=== PATIENT | male | born 1955 | race Caucasian/White ===

== ENCOUNTER 2020-08-10 06:58 | Inpatient (IN) | payer MEDICAID ==
[2020-08-03 14:42] LABS: BASOPHILS % (AUTO) 0.3 % (0-1); EOSINOPHILS % (AUTO) 0.6 % (0-6); LYMPHOCYTES # (AUTO) 1.1 X10'3 (1.1-4.8); LYMPHOCYTES % (AUTO) 14.3 % (21-51); MEAN CORPUSCULAR HEMOGLOBIN 34.6 PG (27.0-31.0); MEAN CORPUSCULAR HGB CONC 33.9 g/dL (33.0-36.5); MEAN PLATELET VOLUME 8.1 FL (7.4-10.4); MONOCYTES # (AUTO) 0.6 X10'3 (0-0.9); MONOCYTES % (AUTO) 7.5 % (2-12); NEUTROPHILS % (AUTO) 77.3 % (42-75); PRE OP HEMATOCRIT 39.2 % (42.0-52.0); PRE OP HEMOGLOBIN 13.3 g/dL (14.0-17.9); PRE OP PLATELET COUNT 160 X10'3 (140-440); RED BLOOD COUNT 3.85 X10'6 (4.70-6.10); RED CELL DISTRIBUTION WIDTH 15.7 % (11.5-14.5)
[2020-08-03 14:55] LABS: PRE OP PROTIME 10.7 SECONDS (9.0-12.0)
[2020-08-03 15:03] LABS: ALBUMIN 3.7 G/DL (3.4-5.0); ALBUMIN/GLOBULIN RATIO 1.1 (1.1-1.5); ALKALINE PHOSPHATASE 116 IU/L (46-116); BLOOD UREA NITROGEN 14 MG/DL (7-18); BUN/CREATININE RATIO 14.6 (5.4-32.0); CALCIUM 9.2 MG/DL (8.5-10.1); CHLORIDE 107 MMOL/L (99-107); CREATININE 0.96 MG/DL (0.60-1.10); PRE OP ALT 22 U/L (30-65); PRE OP ANION GAP 6 (8-16); PRE OP AST 15 U/L (10-37); PRE OP BILIRUB, TOTAL 0.3 MG/DL (0.0-1.0); PRE OP GLUCOSE 93 MG/DL (70-104); PRE OP POTASSIUM 4.2 MMOL/L (3.4-5.1); PRE OP SODIUM 140 MMOL/L (135-145); TOTAL CARBON DIOXIDE 27.1 MMOL/L (24-32); TOTAL PROTEIN 7.1 G/DL (6.4-8.2); eGFR 79 ML/MIN
[2020-08-10] VITALS (23 sets, daily range): BP systolic 92–139; BP diastolic 52–88
[~2020-08-10] VITALS: Ht 188 cm; Wt 90.7 kg
[~2020-08-10 06:58] MED LIST: NO HOME MEDS; ceFAZolin 2gm in dextrose, iso 50 ML IV ONE; famotidine 20mg tablet PO ONE; ringers solution, lacted 1,000 ML IV SCH
[2020-08-10] MEDS ORDERED: BUPIVAcaine/PF 2.5mg/ml (0.25%) 10ml vial ONE (08:21)
[2020-08-10] MEDS ORDERED: BUPIVAcaine/PF 2.5 mg/ml (0.25%) 30ml vial ONE (08:21)
[2020-08-10] MEDS ORDERED: BUPIVACAINE liposomal/PF 13.3 MG/ML vial IM ONE ×2 (08:22→11:22)
[2020-08-10] MEDS ORDERED: fentaNYL /PF 50mcg/ml 5ml ampule ONE (08:45)
[2020-08-10] MEDS ORDERED: midazolam 2 mg/2 ml injection ONE ×2 (08:45→10:02)
[2020-08-10] MEDS ORDERED: sevoflurane 250ml liquid IH ONE (09:56)
[2020-08-10] MEDS ORDERED: propofol inj 20 ML IV ONE (10:00)
[2020-08-10] MEDS ORDERED: rocuronium 10mg/ml inj IV ONE ×3 (10:00→14:07)
[2020-08-10] MEDS ORDERED: ePHEDrine 50MG/ML INJ. ONE (11:58)
[2020-08-10] MEDS ORDERED: meperidine/PF 25mg/ml syringe IV PRN ×2 (12:15)
[2020-08-10] MEDS ORDERED: morphine 2 MG/ML inj. syringe IV PRN (12:15)
[2020-08-10] MEDS ORDERED: proCHLORperazine 10 MG/2 ml inj IV PRN (12:15)
[2020-08-10] MEDS ORDERED: ondansetron/PF 4mg/2ml inj IV PRN ×2 (12:15→15:50)
[2020-08-10] MEDS ORDERED: ringers solution, lacted 1,000 ML IV SCH (12:15)
[2020-08-10] MEDS ORDERED: morphine 4 MG/ML inj SYRINge IV PRN ×3 (12:15→15:50)
[2020-08-10] MEDS ORDERED: ceFAZolin 1000mg inj ONE ×2 (13:20→14:07)
[2020-08-10] MEDS ORDERED: glycopyrrolate 0.2mg/ml inj ONE (15:23)
[2020-08-10] MEDS ORDERED: neostigmine methylsulfate 1 MG/ML 10ml vial ONE (15:23)
[2020-08-10] MEDS ORDERED: fentaNYL/PF 50MCG/1 ML 2ML syringe ONE (15:41)
--- NOTE | 2020-08-10 15:47 | NUR ---
Received from OR via BED, accompanied by Anesthesiologist DR BEJARANO and report given by Anesthesiologist. PT ANXIOUS, PAINFUL, PT NOT ANSWERING QUESTIONS, PAIN MEDICATION GIVEN BY DR BEJARANO. RIGHT CHEST W/MEDIPORE TAPE COVERING CT X 1 CDI, NO DRAINAGE IN RIGHT CT, ATTACHED TO SUCTION 20MMHG LCS, NO AIR LEAK NOTED. LEFT CHEST W/INCISION TO MID CHEST W/TAPE COVERING, NO DRIANAGE NOTED. CT X 2 TO SUCTION 20MMHG LCS W/110 ML S/S DRAINAGE IN [facility]. DEAL CATHETER TO GRAVITY DRAINAGE W/YELLOW URINE IN DRAINAGE BAG, COLOSTOMY BAG REMAINS INTACT. Addendum: 08/10/20 at 1630 by Darcy Amaya RN Amended: Links added.
[2020-08-10] MEDS ORDERED: naloxone 0.4 mg/ml inj IV PRN (15:50)
[2020-08-10] MEDS ORDERED: albuterol 2.5 MG/3 ML nebule NEB PRN (15:50)
[2020-08-10] MEDS ORDERED: CADD PCA waste documentation MC PRN (15:50)
[2020-08-10] MEDS ORDERED: metoclopramide 5 mg/ml inj IV PRN (15:50)
[2020-08-10] MEDS ORDERED: sugammadex 200mg/2ml injection IV ONE (15:53)
[2020-08-10] MEDS: meperidine/PF 25mg/ml syringe IV PRN ×4 (16:13→17:42)
[2020-08-10 16:22] LABS: ABG HCO3 20.3 mmol/L (22.0-26.0); ABG OXYGEN SATURATION 91.5 % (94-97); ABG PCO2 (T) 46.1 mmHg (35.0-48.0); FCOHb 0.2 % (0.0-3.9); FLOW 10 L/min; FMetHb 0.3 % (0.0-1.5); PATIENT TEMPERATURE 36.3; TOTAL HEMOGLOBIN 13.7 G/dl (14.0-18.0)
[2020-08-10] MEDS ORDERED: acetaminophen 1,000mg/100ml IV 100 ML IV ONE (16:35)
[2020-08-10] MEDS: ketorolac tromethamine 15mg/ml inj. IV SCH ×2 (16:57→20:52)
[2020-08-10] MEDS: HYDROmorphone/NS 1 mg/ml CADD 50 ML IV SCH ×4 (17:35→23:00)
[2020-08-10 17:40] LABS: ABG BASE EXCESS -6.1 mmol/L (-2.0-2.0); ABG HCO3 19.6 mmol/L (22.0-26.0); ABG OXYGEN SATURATION 97.9 % (94-97); ABG PCO2 (T) 37.8 mmHg (35.0-48.0); ABG PO2 (T) 114.4 mmHg (75.0-100.0); FCOHb 0.1 % (0.0-3.9); FLOW 10 L/min; FMetHb 0.2 % (0.0-1.5); FO2Hb 97.6 % (94-97); PATIENT TEMPERATURE 36.3; TOTAL HEMOGLOBIN 13.2 G/dl (14.0-18.0)
--- NOTE | 2020-08-10 18:37 | NUR ---
Report called to receiving nurse. Transferred via BED, 2 BAGS OF PT Belongings SENT W/PT TO ROOM 2044. PT TRANSFERRED ON CM, [address] X 3 TO [facility]. RECEIVING RN AT BEDSIDE TO RECEIVE PT. DR VIZCAINO IN TO SEE PT PRIOR TO TRANSFER. Special Issues communicated to receiving nurse. YES. Addendum: 08/10/20 at 1858 by Darcy Amaya RN Amended: Links added.
--- NOTE | 2020-08-10 18:38 | NUR ---
Patient here from Recovery Room into room ICU 2044. I have received report from Darcy AVERY and had the opportunity to ask questions and assume patient care.
[2020-08-10] MEDS: potassium Cl 20mEq in D5-NS 1,000 ML IV SCH (19:42)
[2020-08-10] MEDS ORDERED: ketorolac tromethamine 15mg/ml inj. IV SCH (20:00)
[2020-08-10] MEDS ORDERED: albumin (Human) 5% 250ml 250 ML IV ONE (20:35)
--- NOTE | 2020-08-10 20:35 | NUR ---
Dr Abel updated on patient's current status. Orders received.
[2020-08-10] MEDS: ceFAZolin 2gm in dextrose, iso 50 ML IV SCH ×2 (20:44→23:49)
[2020-08-10] MEDS: gabapentin 300mg capsule PO SCH (20:53)
[2020-08-10] MEDS: docusate sod 100mg capsule PO SCH (20:53)
[2020-08-11] VITALS (21 sets, daily range): BP systolic 102–142; BP diastolic 60–83
[2020-08-11] MEDS: HYDROmorphone/NS 1 mg/ml CADD 50 ML IV SCH ×6 (01:00→11:00)
[2020-08-11] MEDS: ketorolac tromethamine 15mg/ml inj. IV SCH ×2 (02:16→07:14)
[2020-08-11 03:44] LABS: BASOPHILS % (AUTO) 0.1 % (0-1); EOSINOPHILS % (AUTO) 0.1 % (0-6); HEMATOCRIT 32.9 % (42.0-52.0); HEMOGLOBIN 11.2 g/dl (14.0-17.9); LYMPHOCYTES # (AUTO) 0.8 X10'3 (1.1-4.8); LYMPHOCYTES % (AUTO) 10.3 % (21-51); MEAN CORPUSCULAR HEMOGLOBIN 34.7 PG (27.0-31.0); MEAN CORPUSCULAR HGB CONC 33.9 g/dL (33.0-36.5); MEAN CORPUSCULAR VOLUME 102.1 FL (78-98); MEAN PLATELET VOLUME 8.2 FL (7.4-10.4); MONOCYTES # (AUTO) 0.6 X10'3 (0-0.9); MONOCYTES % (AUTO) 7.6 % (2-12); NEUTROPHILS # (AUTO) 6.1 X10'3 (1.8-7.7); NEUTROPHILS % (AUTO) 81.9 % (42-75); PLATELET COUNT 125 X10'3 (140-440); RED BLOOD COUNT 3.23 X10'6 (4.70-6.10); WHITE BLOOD COUNT 7.5 X10'3 (4.5-11.0)
[2020-08-11 03:53] LABS: ALANINE AMINOTRANSFERASE 19 U/L (12-78); ALBUMIN/GLOBULIN RATIO 1.1 (1.1-1.5); ALKALINE PHOSPHATASE 77 IU/L (46-116); ANION GAP 9 (8-16); ASPARTATE AMINO TRANSFERASE 32 U/L (10-37); BILIRUBIN,TOTAL 0.7 MG/DL (0.1-1.0); BLOOD UREA NITROGEN 15 MG/DL (7-18); BUN/CREATININE RATIO 14.6 (5.4-32.0); CALCIUM 7.4 MG/DL (8.5-10.1); CHLORIDE 109 MMOL/L (99-107); CREATININE 1.03 MG/DL (0.60-1.10); GLUCOSE 133 MG/DL (70-104); MAGNESIUM 1.8 MG/DL (1.5-2.4); POTASSIUM 3.8 MMOL/L (3.5-5.1); SODIUM 144 MMOL/L (135-145); TOTAL CARBON DIOXIDE 26.1 MMOL/L (24-32); TOTAL PROTEIN 5.8 G/DL (6.4-8.2); eGFR 73 ML/MIN
[2020-08-11] MEDS: potassium Cl 20mEq in D5-NS 1,000 ML IV SCH (04:20)
--- NOTE | 2020-08-11 05:27 | NUR ---
Patient febrile, T:38.3. encouraged IS and flutter valve. Turned down thermostat in room, fan indirectly blowing on patient. Will continue to monitor.
--- NOTE | 2020-08-11 06:30 | NUR ---
Problems reprioritized. Patient report given, questions answered & plan of care reviewed with Elsa AVERY.
[2020-08-11] MEDS: gabapentin 300mg capsule PO SCH ×2 (07:13→20:16)
[2020-08-11] MEDS: docusate sod 100mg capsule PO SCH ×2 (07:14→20:16)
[2020-08-11] MEDS: HYDROcodone/acetaminophen 10/325mg tab PO PRN ×3 (15:30→23:49)
--- NOTE | 2020-08-11 18:30 | NUR ---
Patient in room ICU 2044. I have received report from Elsa AVERY and had the opportunity to ask questions and assume patient care.
--- NOTE | 2020-08-11 20:41 | NUR ---
Received report from GENA Chiang. Awaiting patient arrival to the floor.
--- NOTE | 2020-08-11 20:55 | NUR ---
Patient arrived to the floor via wheelchair accompanied by GENA Chiang. Placed in room 316A. Patient awake and alert on 2L NC, in no apparent distress. Call light and items of frequent use within reach. Will continue to monitor.
--- NOTE | 2020-08-11 21:30 | NUR ---
Report called to Margaret AVERY receiving nurse. Transferred via wheel chair with Belongings to ACCE room 316. Special Issues communicated to receiving nurse.
[2020-08-12 02:00] VITALS: BP 112/55
--- NOTE | 2020-08-12 06:15 | NUR ---
Problems reprioritized. Patient report given, questions answered & plan of care reviewed with GENA Hansen.
[2020-08-12 06:26] LABS: BASOPHILS % (AUTO) 0.4 % (0-1); EOSINOPHILS # (AUTO) 0.1 X10'3 (0-0.9); EOSINOPHILS % (AUTO) 1.1 % (0-6); HEMATOCRIT 32.8 % (42.0-52.0); HEMOGLOBIN 11.2 g/dl (14.0-17.9); LYMPHOCYTES # (AUTO) 1.1 X10'3 (1.1-4.8); LYMPHOCYTES % (AUTO) 13.2 % (21-51); MEAN CORPUSCULAR HEMOGLOBIN 34.9 PG (27.0-31.0); MEAN CORPUSCULAR HGB CONC 34.2 g/dL (33.0-36.5); MEAN CORPUSCULAR VOLUME 102.1 FL (78-98); MEAN PLATELET VOLUME 8.6 FL (7.4-10.4); MONOCYTES # (AUTO) 0.7 X10'3 (0-0.9); MONOCYTES % (AUTO) 8.6 % (2-12); NEUTROPHILS # (AUTO) 6.5 X10'3 (1.8-7.7); NEUTROPHILS % (AUTO) 76.7 % (42-75); PLATELET COUNT 124 X10'3 (140-440); RED BLOOD COUNT 3.21 X10'6 (4.70-6.10); RED CELL DISTRIBUTION WIDTH 14.6 % (11.5-14.5); WHITE BLOOD COUNT 8.5 X10'3 (4.5-11.0)
[2020-08-12 06:32] LABS: ALANINE AMINOTRANSFERASE 17 U/L (12-78); ALBUMIN 3.1 G/DL (3.4-5.0); ALKALINE PHOSPHATASE 78 IU/L (46-116); ANION GAP 6 (8-16); ASPARTATE AMINO TRANSFERASE 25 U/L (10-37); BILIRUBIN,TOTAL 0.5 MG/DL (0.1-1.0); BLOOD UREA NITROGEN 11 MG/DL (7-18); BUN/CREATININE RATIO 12.2 (5.4-32.0); CALCIUM 8.1 MG/DL (8.5-10.1); CHLORIDE 105 MMOL/L (99-107); GLUCOSE 108 MG/DL (70-104); PHOSPHORUS 1.9 MG/DL (2.3-4.5); POTASSIUM 3.8 MMOL/L (3.5-5.1); SODIUM 138 MMOL/L (135-145); TOTAL CARBON DIOXIDE 27.1 MMOL/L (24-32); TOTAL PROTEIN 6.3 G/DL (6.4-8.2); eGFR 85 ML/MIN
--- NOTE | 2020-08-12 06:39 | NUR ---
Patient in room MED 316A. I have received report from GENA PERSON and had the opportunity to ask questions and assume patient care.
[2020-08-12 07:00] VITALS: BP 104/55
[2020-08-12] MEDS: gabapentin 300mg capsule PO SCH ×3 (08:16→20:15)
[2020-08-12] MEDS: docusate sod 100mg capsule PO SCH ×2 (08:16→20:15)
[2020-08-12] MEDS: HYDROcodone/acetaminophen 10/325mg tab PO PRN ×2 (08:30→20:15)
[2020-08-12] MEDS ORDERED: HYDROmorphone 1 mg/ml syringe IV PRN (09:25)
[2020-08-12 10:38] VITALS: BP 116/69
[2020-08-12] MEDS: traMADol 50MG tablet PO PRN ×2 (11:45→17:54)
--- NOTE | 2020-08-12 12:01 | NUR ---
I have reviewed and agree with all medications administered and interventions performed by [facility] Student Beckyyuliana Díaz. Addendum: 08/12/20 at 1201 by Kat Torres RT Amended: Links added.
[2020-08-12 15:00] VITALS: BP 125/78
--- NOTE | 2020-08-12 17:36 | NUR ---
ATRIM CHANGED OUT BECAUSE WATER CHAMBER/SEAL NOT WORKING RIGHT
--- NOTE | 2020-08-12 18:15 | NUR ---
Problems reprioritized. Patient report given, questions answered & plan of care reviewed with GENA LOPEZ.
[2020-08-12 22:10] VITALS: BP 121/65
--- NOTE | 2020-08-12 22:32 | NUR ---
Dr. Abel notified about chest xray and right pnuemothorax. Dr. Abel aware.
[2020-08-13 02:10] VITALS: BP 109/60
[2020-08-13] MEDS: HYDROcodone/acetaminophen 10/325mg tab PO PRN ×3 (02:34→14:53)
[2020-08-13 03:50] LABS: BASOPHILS % (AUTO) 0.4 % (0-1); EOSINOPHILS # (AUTO) 0.1 X10'3 (0-0.9); EOSINOPHILS % (AUTO) 2.2 % (0-6); HEMATOCRIT 33.4 % (42.0-52.0); HEMOGLOBIN 11.3 g/dl (14.0-17.9); LYMPHOCYTES # (AUTO) 1.1 X10'3 (1.1-4.8); LYMPHOCYTES % (AUTO) 16.8 % (21-51); MEAN CORPUSCULAR HEMOGLOBIN 34.2 PG (27.0-31.0); MEAN CORPUSCULAR HGB CONC 33.8 g/dL (33.0-36.5); MEAN CORPUSCULAR VOLUME 101.2 FL (78-98); MEAN PLATELET VOLUME 8.4 FL (7.4-10.4); MONOCYTES # (AUTO) 0.6 X10'3 (0-0.9); MONOCYTES % (AUTO) 9.4 % (2-12); NEUTROPHILS # (AUTO) 4.8 X10'3 (1.8-7.7); NEUTROPHILS % (AUTO) 71.2 % (42-75); PLATELET COUNT 140 X10'3 (140-440); RED CELL DISTRIBUTION WIDTH 14.6 % (11.5-14.5); WHITE BLOOD COUNT 6.8 X10'3 (4.5-11.0)
[2020-08-13 03:59] LABS: ALANINE AMINOTRANSFERASE 17 U/L (12-78); ALBUMIN 2.9 G/DL (3.4-5.0); ALBUMIN/GLOBULIN RATIO 0.9 (1.1-1.5); ALKALINE PHOSPHATASE 79 IU/L (46-116); ANION GAP 9 (8-16); ASPARTATE AMINO TRANSFERASE 25 U/L (10-37); BILIRUBIN,TOTAL 0.5 MG/DL (0.1-1.0); BLOOD UREA NITROGEN 10 MG/DL (7-18); CALCIUM 8.4 MG/DL (8.5-10.1); CHLORIDE 104 MMOL/L (99-107); CREATININE 0.83 MG/DL (0.60-1.10); GLUCOSE 104 MG/DL (70-104); MAGNESIUM 1.9 MG/DL (1.5-2.4); PHOSPHORUS 2.2 MG/DL (2.3-4.5); POTASSIUM 3.7 MMOL/L (3.5-5.1); SODIUM 140 MMOL/L (135-145); TOTAL CARBON DIOXIDE 27.5 MMOL/L (24-32); TOTAL PROTEIN 6.3 G/DL (6.4-8.2); eGFR > 90 ML/MIN
[2020-08-13 07:00] VITALS: BP 114/59
[2020-08-13] MEDS: docusate sod 100mg capsule PO SCH ×2 (07:53→20:18)
[2020-08-13] MEDS: gabapentin 300mg capsule PO SCH ×3 (07:54→20:18)
--- NOTE | 2020-08-13 16:00 | NUR ---
Pt walked twice around the unit, then back to sit up in chair. Pt tolerated well.
[2020-08-13 18:00] VITALS: BP 118/74
[2020-08-13] MEDS: enoxaparin 40mg/0.4ml syringe SUBCUT SCH (20:20)
[2020-08-13 22:00] VITALS: BP 138/69
[2020-08-13] MEDS ORDERED: magnesium hydroxide 30ml (MOM) UD suspension PO ONE (22:40)
[2020-08-14 02:00] VITALS: BP 112/65
[2020-08-14 05:33] LABS: BASOPHILS % (AUTO) 0.5 % (0-1); EOSINOPHILS # (AUTO) 0.2 X10'3 (0-0.9); EOSINOPHILS % (AUTO) 2.4 % (0-6); HEMATOCRIT 34.5 % (42.0-52.0); HEMOGLOBIN 11.7 g/dl (14.0-17.9); LYMPHOCYTES % (AUTO) 15.8 % (21-51); MEAN CORPUSCULAR HGB CONC 33.8 g/dL (33.0-36.5); MEAN CORPUSCULAR VOLUME 100.7 FL (78-98); MEAN PLATELET VOLUME 9.1 FL (7.4-10.4); MONOCYTES # (AUTO) 0.5 X10'3 (0-0.9); MONOCYTES % (AUTO) 7.4 % (2-12); NEUTROPHILS # (AUTO) 4.9 X10'3 (1.8-7.7); NEUTROPHILS % (AUTO) 73.9 % (42-75); PLATELET COUNT 165 X10'3 (140-440); RED BLOOD COUNT 3.43 X10'6 (4.70-6.10); RED CELL DISTRIBUTION WIDTH 14.7 % (11.5-14.5); WHITE BLOOD COUNT 6.6 X10'3 (4.5-11.0)
[2020-08-14 05:44] LABS: ALANINE AMINOTRANSFERASE 23 U/L (12-78); ALBUMIN 2.7 G/DL (3.4-5.0); ALBUMIN/GLOBULIN RATIO 0.8 (1.1-1.5); ALKALINE PHOSPHATASE 86 IU/L (46-116); ANION GAP 7 (8-16); ASPARTATE AMINO TRANSFERASE 24 U/L (10-37); BILIRUBIN,TOTAL 0.4 MG/DL (0.1-1.0); CALCIUM 8.5 MG/DL (8.5-10.1); CHLORIDE 105 MMOL/L (99-107); GLUCOSE 106 MG/DL (70-104); PHOSPHORUS 2.4 MG/DL (2.3-4.5); POTASSIUM 3.6 MMOL/L (3.5-5.1); SODIUM 140 MMOL/L (135-145); TOTAL CARBON DIOXIDE 28.5 MMOL/L (24-32); TOTAL PROTEIN 6.1 G/DL (6.4-8.2); eGFR 85 ML/MIN
[2020-08-14 05:57] LABS: BLOOD UREA NITROGEN 12 MG/DL (7-18); BUN/CREATININE RATIO 13.3 (5.4-32.0)
[2020-08-14 06:00] VITALS: BP 111/64
--- NOTE | 2020-08-14 06:40 | NUR ---
Patient in room MED 316. I have received report from GENA Casarez and had the opportunity to ask questions and assume patient care.
[2020-08-14] MEDS: gabapentin 300mg capsule PO SCH ×3 (07:39→21:24)
[2020-08-14] MEDS: docusate sod 100mg capsule PO SCH ×2 (07:41→20:00)
--- NOTE | 2020-08-14 10:51 | NUR ---
Initial: Pt s/p left thoracotomy with lingular resection, right and middle lobe wedge resection, and chest tube placement, now removed per physical assessment. Pt on a regular diet documented with 100% PO intake with the exception of average 50% PO intake x 3 meals since admit. Pt meeting estimated nutrient needs at this time. 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 Pt receiving routine bowel care and received one time dose of MoM 2/4. D/w dietary to send prunes and prune juice with next meal to further assist with bowel regularity. Will continue to follow and monitor need for further nutrition intervention. Recommendations: 1) Continue regular diet 2) Monitor need for additional protein for satiety 3) Routine bowel care 4) Scaled weights per rx Addendum: 08/14/20 at [address] Amended: Links added.
[2020-08-14 11:00] VITALS: BP 122/64
[2020-08-14 13:00] VITALS: BP 115/61
[2020-08-14 18:00] VITALS: BP 114/64
[2020-08-14] MEDS: enoxaparin 40mg/0.4ml syringe SUBCUT SCH (21:24)
[2020-08-14 22:00] VITALS: BP 130/71
[2020-08-15 02:00] VITALS: BP 127/79
[2020-08-15 06:00] VITALS: BP 117/63
--- NOTE | 2020-08-15 06:32 | NUR ---
Patient in room MED 316. I have received report from GENA Casarez and had the opportunity to ask questions and assume patient care.
[2020-08-15 06:39] LABS: BASOPHILS % (AUTO) 0.6 % (0-1); EOSINOPHILS # (AUTO) 0.2 X10'3 (0-0.9); EOSINOPHILS % (AUTO) 2.7 % (0-6); HEMATOCRIT 33.4 % (42.0-52.0); HEMOGLOBIN 11.6 g/dl (14.0-17.9); LYMPHOCYTES # (AUTO) 1.2 X10'3 (1.1-4.8); LYMPHOCYTES % (AUTO) 20.5 % (21-51); MEAN CORPUSCULAR HEMOGLOBIN 34.3 PG (27.0-31.0); MEAN CORPUSCULAR HGB CONC 34.7 g/dL (33.0-36.5); MEAN CORPUSCULAR VOLUME 98.9 FL (78-98); MEAN PLATELET VOLUME 8.6 FL (7.4-10.4); MONOCYTES # (AUTO) 0.6 X10'3 (0-0.9); MONOCYTES % (AUTO) 10.2 % (2-12); PLATELET COUNT 179 X10'3 (140-440); RED BLOOD COUNT 3.38 X10'6 (4.70-6.10); RED CELL DISTRIBUTION WIDTH 14.6 % (11.5-14.5); WHITE BLOOD COUNT 6.1 X10'3 (4.5-11.0)
[2020-08-15 07:12] LABS: ALANINE AMINOTRANSFERASE 23 U/L (12-78); ALBUMIN 2.7 G/DL (3.4-5.0); ALBUMIN/GLOBULIN RATIO 0.8 (1.1-1.5); ALKALINE PHOSPHATASE 81 IU/L (46-116); ANION GAP 11 (8-16); ASPARTATE AMINO TRANSFERASE 18 U/L (10-37); BILIRUBIN,TOTAL 0.6 MG/DL (0.1-1.0); BLOOD UREA NITROGEN 10 MG/DL (7-18); BUN/CREATININE RATIO 12.7 (5.4-32.0); CALCIUM 8.1 MG/DL (8.5-10.1); CHLORIDE 106 MMOL/L (99-107); CREATININE 0.79 MG/DL (0.60-1.10); GLUCOSE 103 MG/DL (70-104); MAGNESIUM 2.1 MG/DL (1.5-2.4); PHOSPHORUS 2.5 MG/DL (2.3-4.5); POTASSIUM 3.9 MMOL/L (3.5-5.1); SODIUM 142 MMOL/L (135-145); TOTAL CARBON DIOXIDE 24.9 MMOL/L (24-32); TOTAL PROTEIN 6.1 G/DL (6.4-8.2); eGFR > 90 ML/MIN
[2020-08-15] MEDS: docusate sod 100mg capsule PO SCH (08:00)
[2020-08-15] MEDS: gabapentin 300mg capsule PO SCH ×2 (08:10→12:44)
[2020-08-15 11:00] VITALS: BP 111/69
[2020-08-15] MEDS ORDERED: gabapentin capsule PO (14:20)
--- NOTE | 2020-08-15 15:04 | NUR ---
pt. discharged from facility at 1500. pt. walked down to the lobby accompanied by staff and was picked up by family. pt. signed and understood all paperwork. pt. new meds were called into [facility]. pt. understands to make f/u appointment with his MD. pt. IV was d/c intact. pt. left with all belongings.
== END 2020-08-15 15:00 | disposition home or self-care (01) | DRG 121 ==
LOC: UNDOADMIN 06:58 → PAS IN 06:58 → EDSTATUS 08:00 → PAS IN 15:48 → ICU 2S 18:38 → PAS IN 18:38 → MED 3N 08-11 21:53
PROVIDERS: ADMIT Surgery; ATTEND Surgery
PROC: 0BBH0ZZ Excision of Lung Lingula, Open Approach (ICD-10-PCS; 2020-08-10)
PROC: 0BBD0ZZ Excision of Right Middle Lung Lobe, Open Approach (ICD-10-PCS; 2020-08-10)
PROC: 8E0W0CZ Robotic Assisted Procedure of Trunk Region, Open Approach (ICD-10-PCS; 2020-08-10)
PROC: 0BBF0ZZ Excision of Right Lower Lung Lobe, Open Approach (ICD-10-PCS; principal; 2020-08-10 09:56)
DX: C78.01 Secondary malignant neoplasm of right lung (principal); C18.9 Malignant neoplasm of colon, unspecified; C78.02 Secondary malignant neoplasm of left lung
CPT/HCPCS: 36415; 36600; 71045; 71046; 71250; 80053; 82803; 82948; 83735; 84100; 85018; 85025; 85610; 85730; 86885; 86900; 86901; 87081; 93005; 94760; 97161; 97530; A4618; A6258; A6449; A7000; A7048; C1758; C9290; C9399; G0378; J0131; J0690; J1170; J1650; J1885; J2175; J2250; J2270; J2704; J2710; J3010; J3480; J3490; J7040; J7120; P9045

== ENCOUNTER 2020-11-19 08:38 | Day surgery (SDC) | payer MEDICAID ==
[~2020-11-19] VITALS: Ht 188 cm; Wt 96.3 kg
[2020-11-19] VITALS (7 sets, daily range): BP systolic 110–146; BP diastolic 63–79
[~2020-11-19 08:38] MED LIST changes: -ceFAZolin 2gm in dextrose, iso 50 ML IV ONE; -famotidine 20mg tablet PO ONE; +gabapentin capsule PO; -ringers solution, lacted 1,000 ML IV SCH
[2020-11-19] MEDS ORDERED: normal saline 1000ml 1,000 ML IV SCH ×2 (09:00→10:25)
[2020-11-19] MEDS ORDERED: MAGN400C PO (09:00)
== END 2020-11-19 11:30 | disposition home or self-care (01) ==
LOC: SSTAY O 08:38
PROVIDERS: ATTEND Radiology Diagnostic Radiology
DX: R91.8 Other nonspecific abnormal finding of lung field (principal); C18.7 Malignant neoplasm of sigmoid colon; C78.00 Secondary malignant neoplasm of unspecified lung; Z98.890 Other specified postprocedural states; Z79.899 Other long term (current) drug therapy; Z90.2 Acquired absence of lung [part of]
CPT/HCPCS: 10005

== ENCOUNTER 2020-12-01 12:21 | Inpatient (IN) | payer MEDICAID ==
[2020-11-24 15:55] LABS: BASOPHILS % (AUTO) 0.3 % (0-1); EOSINOPHILS # (AUTO) 0.1 X10'3 (0-0.9); EOSINOPHILS % (AUTO) 0.7 % (0-6); LYMPHOCYTES # (AUTO) 1.5 X10'3 (1.1-4.8); LYMPHOCYTES % (AUTO) 19.4 % (21-51); MEAN CORPUSCULAR HEMOGLOBIN 35.1 PG (27.0-31.0); MEAN CORPUSCULAR HGB CONC 34.5 g/dL (33.0-36.5); MEAN CORPUSCULAR VOLUME 101.7 FL (78-98); MEAN PLATELET VOLUME 7.1 FL (7.4-10.4); MONOCYTES # (AUTO) 0.7 X10'3 (0-0.9); MONOCYTES % (AUTO) 9.2 % (2-12); NEUTROPHILS # (AUTO) 5.4 X10'3 (1.8-7.7); NEUTROPHILS % (AUTO) 70.4 % (42-75); PRE OP HEMATOCRIT 38.4 % (42.0-52.0); PRE OP HEMOGLOBIN 13.2 g/dL (14.0-17.9); PRE OP PLATELET COUNT 125 X10'3 (140-440); RED BLOOD COUNT 3.77 X10'6 (4.70-6.10)
[2020-11-24 16:10] LABS: ALBUMIN 3.8 G/DL (3.4-5.0); ALBUMIN/GLOBULIN RATIO 1.3 (1.1-1.5); ALKALINE PHOSPHATASE 97 IU/L (46-116); BLOOD UREA NITROGEN 16 MG/DL (7-18); CHLORIDE 106 MMOL/L (99-107); PRE OP ALT 16 U/L (30-65); PRE OP ANION GAP 8 (8-16); PRE OP AST 15 U/L (10-37); PRE OP BILIRUB, TOTAL 0.5 MG/DL (0.0-1.0); PRE OP GLUCOSE 101 MG/DL (70-104); PRE OP SODIUM 142 MMOL/L (135-145); TOTAL CARBON DIOXIDE 28.2 MMOL/L (24-32); TOTAL PROTEIN 6.7 G/DL (6.4-8.2); eGFR 75 ML/MIN
[2020-11-24 17:59] LABS: ANISOCYTOSIS 3+; PLATELET ESTIMATE DECREASED
[2020-11-24 18:00] LABS: SPHEROCYTES FEW
[2020-12-01] VITALS (16 sets, daily range): BP systolic 100–127; BP diastolic 57–78
[~2020-12-01] VITALS: Ht 188 cm; Wt 94.0 kg
[~2020-12-01 12:21] MED LIST changes: +famotidine 20mg tablet PO ONE; -gabapentin capsule PO; +ringers solution, lacted 1,000 ML IV SCH
[2020-12-01] MEDS ORDERED: ceFOXitin 2GM-NS 100mL ADDvant 100 ML IV ONE (12:50)
[2020-12-01 13:29] LABS: BASOPHILS % (AUTO) 0.6 % (0-1); EOSINOPHILS # (AUTO) 0.1 X10'3 (0-0.9); EOSINOPHILS % (AUTO) 1.8 % (0-6); LYMPHOCYTES # (AUTO) 1.6 X10'3 (1.1-4.8); LYMPHOCYTES % (AUTO) 26.1 % (21-51); MEAN CORPUSCULAR HEMOGLOBIN 35.2 PG (27.0-31.0); MEAN CORPUSCULAR HGB CONC 34.4 g/dL (33.0-36.5); MEAN CORPUSCULAR VOLUME 102.4 FL (78-98); MEAN PLATELET VOLUME 7.9 FL (7.4-10.4); MONOCYTES # (AUTO) 0.6 X10'3 (0-0.9); MONOCYTES % (AUTO) 8.8 % (2-12); NEUTROPHILS # (AUTO) 3.9 X10'3 (1.8-7.7); NEUTROPHILS % (AUTO) 62.7 % (42-75); PRE OP HEMOGLOBIN 14.1 g/dL (14.0-17.9); PRE OP PLATELET COUNT 152 X10'3 (140-440); RED BLOOD COUNT 4.01 X10'6 (4.70-6.10); RED CELL DISTRIBUTION WIDTH 22.2 % (11.5-14.5)
[2020-12-01] MEDS ORDERED: iohexol 300mg/ml 100ml inj. ONE (13:30)
[2020-12-01 13:42] LABS: PRE OP PARTIAL THROMB. TIME 26 SECONDS (22-32)
[2020-12-01 13:45] LABS: ALBUMIN 4.1 G/DL (3.4-5.0); ALBUMIN/GLOBULIN RATIO 1.4 (1.1-1.5); ALKALINE PHOSPHATASE 93 IU/L (46-116); BLOOD UREA NITROGEN 9 MG/DL (7-18); BUN/CREATININE RATIO 8.1 (5.4-32.0); CHLORIDE 108 MMOL/L (99-107); CREATININE 1.11 MG/DL (0.60-1.10); PRE OP ALT 22 U/L (30-65); PRE OP ANION GAP 12 (8-16); PRE OP AST 17 U/L (10-37); PRE OP BILIRUB, TOTAL 1.1 MG/DL (0.0-1.0); PRE OP GLUCOSE 94 MG/DL (70-104); PRE OP POTASSIUM 3.9 MMOL/L (3.4-5.1); PRE OP SODIUM 144 MMOL/L (135-145); TOTAL CARBON DIOXIDE 24.2 MMOL/L (24-32); TOTAL PROTEIN 7.1 G/DL (6.4-8.2); eGFR 67 ML/MIN
[2020-12-01] MEDS ORDERED: fentaNYL/PF 50MCG/1 ML 2ML syringe ONE ×3 (14:21→17:12)
[2020-12-01] MEDS ORDERED: LIDOcaine 2% (20mg/ml) 5ml vial ONE ×2 (14:22)
[2020-12-01] MEDS ORDERED: ondansetron/PF 4mg/2ml inj ONE (14:22)
[2020-12-01] MEDS ORDERED: midazolam 1 mg/ML 2ml injection ONE (14:22)
[2020-12-01] MEDS ORDERED: rocuronium 10mg/ml inj IV ONE ×3 (14:22→15:40)
[2020-12-01] MEDS ORDERED: propofol inj 20 ML IV ONE ×2 (14:22)
[2020-12-01 14:36] LABS: PLATELET ESTIMATE NORMAL
[2020-12-01 14:37] LABS: ANISOCYTOSIS 3+
[2020-12-01] MEDS ORDERED: ringers solution, lacted 1,000 ML IV SCH (14:55)
[2020-12-01] MEDS ORDERED: morphine 4 MG/ML inj SYRINge IV PRN (14:55)
[2020-12-01] MEDS ORDERED: enalaprilat dihydrate 2.5mg/2ml vial IV PRN (14:55)
[2020-12-01] MEDS ORDERED: fentaNYL/PF 50MCG/1 ML 2ML syringe IV PRN ×2 (14:55)
[2020-12-01] MEDS ORDERED: morphine 2 MG/ML inj. syringe IV PRN (14:55)
[2020-12-01] MEDS ORDERED: ondansetron/PF 4mg/2ml inj IV PRN (14:55)
[2020-12-01] MEDS ORDERED: hydrALAZINE 20mg/ml inj. IV PRN (14:55)
[2020-12-01] MEDS ORDERED: atropine 0.4 mg/ml 20ml vial ONE (15:34)
[2020-12-01] MEDS ORDERED: neostigmine methylsulfate 1 MG/ML 10ml vial ONE (16:05)
[2020-12-01] MEDS ORDERED: glycopyrrolate 0.2mg/ml inj ONE (16:06)
[2020-12-01] MEDS ORDERED: morphine 10mg/ml inj. ONE (18:02)
--- NOTE | 2020-12-01 18:13 | NUR ---
Received from OR via , accompanied by Anesthesiologist DR ARAGON and report given by Anesthesiolgist. AWAKENS TO VOICE. VITALS STABLE. DRESSINGS DI. GARDENIA PAIN. GAY CUMMINGS SEROSANG IN BULB. DEAL WITH CLEAR URINE.
[2020-12-01] MEDS: potassium CL 20mEq in D5-1/2NS 1,000 ML IV SCH (18:40)
[2020-12-01] MEDS ORDERED: HYDROmorphone 1 mg/ml syringe IV PRN (18:40)
[2020-12-01] MEDS ORDERED: ketorolac trometh. 30mg/ml inj. IV PRN (18:40)
--- NOTE | 2020-12-01 19:23 | NUR ---
Report called to receiving nurse. Transferred via BED Belongings . Special Issues communicated to receiving nurse. AWAKE AND ORIENTED. VITALS STABLE. DRESSINGS DI. STATES PAIN IMPROVING. TO SURGICAL RM 349A AT THIS TIME.
[2020-12-01] MEDS: gabapentin 300mg capsule PO SCH ×2 (21:00→21:18)
[2020-12-02] MEDS ORDERED: ceFOXitin 1 GM/D5W 50mL IVPB 1 GM in normal saline 100ml IV soln 100 ML IV SCH ×2
[2020-12-02] MEDS: ceFOXitin 1 GM/D5W 50mL IVPB 50 ML IV SCH ×2 (01:44→08:30)
[2020-12-02 04:00] VITALS: BP 109/61
[2020-12-02] MEDS: HYDROcodone/acetaminophen 10/325mg tab PO PRN (04:51)
[2020-12-02] MEDS: potassium CL 20mEq in D5-1/2NS 1,000 ML IV SCH ×3 (04:52→21:08)
--- NOTE | 2020-12-02 06:22 | NUR ---
Problems reprioritized. Patient report given, questions answered & plan of care reviewed with GENA Avila.
[2020-12-02 06:28] LABS: ALBUMIN 3.2 G/DL (3.4-5.0); ANION GAP 10 (8-16); BLOOD UREA NITROGEN 13 MG/DL (7-18); BUN/CREATININE RATIO 11.2 (5.4-32.0); CALCIUM 8.3 MG/DL (8.5-10.1); CHLORIDE 106 MMOL/L (99-107); CREATININE 1.16 MG/DL (0.60-1.10); GLUCOSE 147 MG/DL (70-104); POTASSIUM 4.1 MMOL/L (3.5-5.1); SODIUM 141 MMOL/L (135-145); TOTAL CARBON DIOXIDE 25.3 MMOL/L (24-32); eGFR 63 ML/MIN
--- NOTE | 2020-12-02 06:45 | NUR ---
Patient in room [facility] 349. I have received report from Patrick AVERY and had the opportunity to ask questions and assume patient care.
[2020-12-02 08:00] VITALS: BP 105/61
[2020-12-02] MEDS: gabapentin 300mg capsule PO SCH ×4 (08:30→21:07)
[2020-12-02 11:00] VITALS: BP 111/57
--- NOTE | 2020-12-02 18:37 | NUR ---
patient ambulated x4 still not able to pass gas seen by Dr Abel, dressing changed sero sang drainage observed small amount to stoma reversal. GAY in place 60 mls drained. patient continues on clear lqds can advance when bowel,activity returns. Report given to Vy AVERY
[2020-12-02 20:00] VITALS: BP 142/61
--- NOTE | 2020-12-02 20:30 | NUR ---
Reported off to Margaret AVERY who will be assuming care of patient.
--- NOTE | 2020-12-02 21:30 | NUR ---
Patient in room [facility] 349A. I have received report from GENA Mcclellan and had the opportunity to ask questions and assume patient care.
[2020-12-02 23:35] VITALS: BP 118/62
[2020-12-02 23:37] VITALS: BP 118/62
[2020-12-03] MEDS: potassium CL 20mEq in D5-1/2NS 1,000 ML IV SCH ×2 (05:53→08:48)
--- NOTE | 2020-12-03 06:35 | NUR ---
Problems reprioritized. Patient report given, questions answered & plan of care reviewed with GENA Hess.
[2020-12-03 07:13] LABS: ALBUMIN 3.3 G/DL (3.4-5.0); ANION GAP 7 (8-16); BLOOD UREA NITROGEN 8 MG/DL (7-18); BUN/CREATININE RATIO 7.1 (5.4-32.0); CALCIUM 8.3 MG/DL (8.5-10.1); CHLORIDE 109 MMOL/L (99-107); CREATININE 1.12 MG/DL (0.60-1.10); GLUCOSE 104 MG/DL (70-104); POTASSIUM 3.7 MMOL/L (3.5-5.1); SODIUM 143 MMOL/L (135-145); TOTAL CARBON DIOXIDE 27.4 MMOL/L (24-32); eGFR 66 ML/MIN
[2020-12-03] MEDS: gabapentin 300mg capsule PO SCH ×4 (07:22→20:05)
[2020-12-03] MEDS: magnesium hydroxide 30ml (MOM) UD suspension PO SCH ×2 (07:22→19:57)
[2020-12-03 08:00] VITALS: BP 112/70
[2020-12-03] MEDS: HYDROcodone/acetaminophen 10/325mg tab PO PRN (10:32)
[2020-12-03 11:00] VITALS: BP 111/77
--- NOTE | 2020-12-03 18:43 | NUR ---
Report given to Margaret AVERY, and Kit AVERY. All questions answered. Pt doing well, walking, sister at bedside.
--- NOTE | 2020-12-03 19:01 | NUR ---
Patient in room [facility] 349. I have received report from Jimena AVERY and had the opportunity to ask questions and assume patient care. Kit AVERY
[2020-12-03 19:45] VITALS: BP 127/72
[2020-12-03] MEDS: enoxaparin 40mg/0.4ml syringe SUBCUT SCH (20:02)
[2020-12-03 23:05] VITALS: BP 129/67
[2020-12-04] MEDS: potassium CL 20mEq in D5-1/2NS 1,000 ML IV SCH ×2 (00:38→18:09)
[2020-12-04 06:12] LABS: BASOPHILS % (AUTO) 0.6 % (0-1); EOSINOPHILS # (AUTO) 0.3 X10'3 (0-0.9); EOSINOPHILS % (AUTO) 3.1 % (0-6); HEMATOCRIT 37.3 % (42.0-52.0); HEMOGLOBIN 12.8 g/dl (14.0-17.9); LYMPHOCYTES # (AUTO) 1.6 X10'3 (1.1-4.8); LYMPHOCYTES % (AUTO) 19.9 % (21-51); MEAN CORPUSCULAR HEMOGLOBIN 35.7 PG (27.0-31.0); MEAN CORPUSCULAR HGB CONC 34.3 g/dL (33.0-36.5); MEAN CORPUSCULAR VOLUME 103.9 FL (78-98); MONOCYTES # (AUTO) 0.7 X10'3 (0-0.9); NEUTROPHILS # (AUTO) 5.6 X10'3 (1.8-7.7); NEUTROPHILS % (AUTO) 67.4 % (42-75); PLATELET COUNT 128 X10'3 (140-440); RED BLOOD COUNT 3.59 X10'6 (4.70-6.10); RED CELL DISTRIBUTION WIDTH 20.5 % (11.5-14.5); WHITE BLOOD COUNT 8.3 X10'3 (4.5-11.0)
[2020-12-04 06:30] VITALS: BP 139/79
[2020-12-04 06:31] LABS: ALBUMIN 3.2 G/DL (3.4-5.0); ANION GAP 8 (8-16); BLOOD UREA NITROGEN 5 MG/DL (7-18); CALCIUM 8.7 MG/DL (8.5-10.1); CHLORIDE 107 MMOL/L (99-107); CREATININE 1.01 MG/DL (0.60-1.10); GLUCOSE 102 MG/DL (70-104); POTASSIUM 3.7 MMOL/L (3.5-5.1); SODIUM 143 MMOL/L (135-145); TOTAL CARBON DIOXIDE 27.6 MMOL/L (24-32); eGFR 74 ML/MIN
--- NOTE | 2020-12-04 06:35 | NUR ---
Patient in room [facility] 349. I have received report from GENA Robles & GENA Pantoja and had the opportunity to ask questions and assume patient care.
--- NOTE | 2020-12-04 06:44 | NUR ---
I have reviewed and agree with all interventions, assessments performed and documented by GENA Pantoja.
[2020-12-04] MEDS: gabapentin 300mg capsule PO SCH ×4 (08:17→21:32)
[2020-12-04] MEDS: magnesium hydroxide 30ml (MOM) UD suspension PO SCH ×2 (08:17→19:39)
[2020-12-04] MEDS: HYDROcodone/acetaminophen 10/325mg tab PO PRN ×2 (08:18→19:39)
[2020-12-04 11:00] VITALS: BP 122/80
[2020-12-04] MEDS: sulfamethoxazole/trimethoprim DS (800/160mg) tablet PO SCH ×2 (11:37→19:38)
[2020-12-04] MEDS: ondansetron/PF 4mg/2ml inj IV PRN (12:44)
[2020-12-04 18:00] VITALS: BP 122/73
--- NOTE | 2020-12-04 18:30 | NUR ---
Problems reprioritized. Patient report given, questions answered & plan of care reviewed with Rachel Ramos RN.
--- NOTE | 2020-12-04 18:35 | NUR ---
Patient in room [facility] 349. I have received report from GARDENIA AVERY and had the opportunity to ask questions and assume patient care.
[2020-12-04] MEDS: enoxaparin 40mg/0.4ml syringe SUBCUT SCH (19:38)
[2020-12-05] VITALS: BP 108/68
[2020-12-05 06:12] LABS: ALBUMIN 3.1 G/DL (3.4-5.0); ANION GAP 6 (8-16); BLOOD UREA NITROGEN 8 MG/DL (7-18); CALCIUM 8.6 MG/DL (8.5-10.1); CHLORIDE 103 MMOL/L (99-107); CREATININE 1.15 MG/DL (0.60-1.10); GLUCOSE 101 MG/DL (70-104); POTASSIUM 3.9 MMOL/L (3.5-5.1); SODIUM 138 MMOL/L (135-145); TOTAL CARBON DIOXIDE 28.9 MMOL/L (24-32); eGFR 64 ML/MIN
--- NOTE | 2020-12-05 06:30 | NUR ---
Problems reprioritized. Patient report given, questions answered & plan of care reviewed with ESVIN AVERY.
[2020-12-05] MEDS: magnesium hydroxide 30ml (MOM) UD suspension PO SCH ×2 (07:34→20:00)
[2020-12-05] MEDS: sulfamethoxazole/trimethoprim DS (800/160mg) tablet PO SCH ×2 (07:35→20:46)
[2020-12-05] MEDS: gabapentin 300mg capsule PO SCH ×4 (07:35→20:46)
[2020-12-05] MEDS: HYDROcodone/acetaminophen 10/325mg tab PO PRN ×2 (07:35→16:56)
[2020-12-05 08:00] VITALS: BP 107/74
[2020-12-05 11:00] VITALS: BP 120/68
[2020-12-05] MEDS: ondansetron/PF 4mg/2ml inj IV PRN (13:01)
[2020-12-05 19:00] VITALS: BP 115/69
[2020-12-05] MEDS: lactobacillus rhamnosus 10,000 MMU CELLS/CAPSULE PO SCH (20:45)
[2020-12-05] MEDS: enoxaparin 40mg/0.4ml syringe SUBCUT SCH (20:47)
[2020-12-05] MEDS: potassium CL 20mEq in D5-1/2NS 1,000 ML IV SCH (22:40)
[2020-12-06 00:42] VITALS: BP 120/70
--- NOTE | 2020-12-06 06:02 | NUR ---
Problems reprioritized. Patient report given, questions answered & plan of care reviewed with Arash AVERY.
[2020-12-06 06:15] LABS: ALBUMIN 2.8 G/DL (3.4-5.0); ANION GAP 8 (8-16); BLOOD UREA NITROGEN 9 MG/DL (7-18); BUN/CREATININE RATIO 7.6 (5.4-32.0); CALCIUM 8.3 MG/DL (8.5-10.1); CHLORIDE 103 MMOL/L (99-107); CREATININE 1.18 MG/DL (0.60-1.10); GLUCOSE 96 MG/DL (70-104); POTASSIUM 3.8 MMOL/L (3.5-5.1); SODIUM 137 MMOL/L (135-145); eGFR 62 ML/MIN
[2020-12-06] MEDS: gabapentin 300mg capsule PO SCH ×4 (07:08→21:47)
[2020-12-06] MEDS: sulfamethoxazole/trimethoprim DS (800/160mg) tablet PO SCH (07:08)
[2020-12-06] MEDS: lactobacillus rhamnosus 10,000 MMU CELLS/CAPSULE PO SCH ×2 (07:08→21:47)
[2020-12-06] MEDS: magnesium hydroxide 30ml (MOM) UD suspension PO SCH (07:08)
[2020-12-06 07:51] VITALS: BP 120/59
[2020-12-06 11:00] VITALS: BP 124/60
--- NOTE | 2020-12-06 15:35 | NUR ---
Initial: Pt admit s/p colostomy reversal 12/02 advanced to full liquids today from prior clear liquids did have regular diet lunch and dinner yesterday likely error though PO 75-100% avg most meals so far post-op partially meeting needs on liquid diet. LBM 12/05 per EMR. Noted MCV 103.9 likely impacted from prior colostomy; consider MVI/B12 supplementation as medically indicated. Will monitor for PO diet advancement and tolerance post-op. Rec: 1. advance diet as medically indicated to low-residue 2. monitor for ONS needs 3. bowel care per rx 4. consider MVI/B12 supplementation w/ MCV 103.9 and recent colostomy hx 5. weekly wts Addendum: 12/06/20 at [address] Amended: Links added.
[2020-12-06] MEDS: HYDROcodone/acetaminophen 10/325mg tab PO PRN (16:18)
--- NOTE | 2020-12-06 18:30 | NUR ---
Patient in room [facility]. I have received report from ESVIN and had the opportunity to ask questions and assume patient care.
[2020-12-06 19:00] VITALS: BP 109/62
[2020-12-06] MEDS: enoxaparin 40mg/0.4ml syringe SUBCUT SCH (21:48)
[2020-12-06 23:00] VITALS: BP 108/59
--- NOTE | 2020-12-07 06:30 | NUR ---
Problems reprioritized. Patient report given, questions answered & plan of care reviewed with ROXANNA.
--- NOTE | 2020-12-07 06:33 | NUR ---
Patient in room [facility] 349. I have received report from Tania AVERY and had the opportunity to ask questions and assume patient care.
[2020-12-07 07:00] VITALS: BP 108/67
[2020-12-07] MEDS: lactobacillus rhamnosus 10,000 MMU CELLS/CAPSULE PO SCH (07:16)
[2020-12-07] MEDS: gabapentin 300mg capsule PO SCH ×3 (07:16→17:10)
[2020-12-07 11:00] VITALS: BP 107/60
--- NOTE | 2020-12-07 18:22 | NUR ---
Problems reprioritized. Patient report given, questions answered & plan of care reviewed with Nina AVERY.
--- NOTE | 2020-12-07 18:44 | NUR ---
Patient in room [facility] 349. I have received report from Sagrario Wells and had the opportunity to ask questions and assume patient care.
[2020-12-07 19:00] VITALS: BP 120/77
--- NOTE | 2020-12-07 19:30 | NUR ---
Surgeon rounded and order for discharge received.
--- NOTE | 2020-12-07 20:11 | NUR ---
Patient IV removed, VSS, patient had belongings packed in room, was dressed and awaiting DC papers. Insisted upon walking rather than being assisted in a wheel chair. Patient instructions reviewed with patient, DC paperwork signed. Walked with patient to front lobby where he is awaiting pickup. Patient refusing to sit inside lobby under the cooler; decided to wait outside on bench instead.
== END 2020-12-07 20:00 | disposition home or self-care (01) | DRG 231 ==
LOC: PAS IN 12:21 → UNDOADMIN 12:21 → PAS IN 18:36 → SUR 3N 19:30
PROVIDERS: ADMIT Surgery; ATTEND Surgery
PROC: 0DN84ZZ Release Small Intestine, Percutaneous Endoscopic Approach (ICD-10-PCS; 2020-12-01)
PROC: B32T1ZZ Computerized Tomography (CT Scan) of Left Pulmonary Artery using Low Osmolar Contrast (ICD-10-PCS; 2020-12-01)
PROC: B32S1ZZ Computerized Tomography (CT Scan) of Right Pulmonary Artery using Low Osmolar Contrast (ICD-10-PCS; 2020-12-01)
PROC: 0D1N0Z4 Bypass Sigmoid Colon to Cutaneous, Open Approach (ICD-10-PCS; principal; 2020-12-01 14:32)
DX: K94.09 Other complications of colostomy (principal); K66.0 Peritoneal adhesions (postprocedural) (postinfection); Z85.038 Personal history of other malignant neoplasm of large intestine
CPT/HCPCS: 36415; 71045; 71260; 74177; 80048; 80053; 82378; 85008; 85025; 85610; 85730; 86885; 86900; 86901; 87070; 87081; A4618; A6449; A7000; C1758; G0378; J0461; J0694; J1650; J1885; J2001; J2250; J2270; J2405; J2704; J2710; J3010; J3480; J3490; J7120; Q9967

== ENCOUNTER 2020-12-12 15:57 | Emergency (ER) | payer MEDICAID ==
[~2020-12-12] VITALS: Ht 188 cm; Wt 91.8 kg
[2020-12-12 16:32] LABS: BASOPHILS # (AUTO) 0.1 X10'3 (0-0.2); BASOPHILS % (AUTO) 0.8 % (0-1); EOSINOPHILS # (AUTO) 0.3 X10'3 (0-0.9); EOSINOPHILS % (AUTO) 3.5 % (0-6); HEMOGLOBIN 13.3 g/dl (14.0-17.9); LYMPHOCYTES # (AUTO) 1.8 X10'3 (1.1-4.8); LYMPHOCYTES % (AUTO) 20.4 % (21-51); MEAN CORPUSCULAR HEMOGLOBIN 35.1 PG (27.0-31.0); MEAN CORPUSCULAR VOLUME 103.1 FL (78-98); MEAN PLATELET VOLUME 7.7 FL (7.4-10.4); MONOCYTES # (AUTO) 0.8 X10'3 (0-0.9); NEUTROPHILS # (AUTO) 5.7 X10'3 (1.8-7.7); NEUTROPHILS % (AUTO) 66.3 % (42-75); PLATELET COUNT 324 X10'3 (140-440); RED BLOOD COUNT 3.79 X10'6 (4.70-6.10); RED CELL DISTRIBUTION WIDTH 17.6 % (11.5-14.5); WHITE BLOOD COUNT 8.6 X10'3 (4.5-11.0)
[2020-12-12 16:54] LABS: ALANINE AMINOTRANSFERASE 40 U/L (12-78); ALBUMIN 3.4 G/DL (3.4-5.0); ALBUMIN/GLOBULIN RATIO 0.8 (1.1-1.5); ALKALINE PHOSPHATASE 108 IU/L (46-116); ANION GAP 9 (8-16); ASPARTATE AMINO TRANSFERASE 28 U/L (10-37); BILIRUBIN,TOTAL 0.3 MG/DL (0.1-1.0); BLOOD UREA NITROGEN 13 MG/DL (7-18); BUN/CREATININE RATIO 11.8 (5.4-32.0); CALCIUM 9.1 MG/DL (8.5-10.1); CHLORIDE 104 MMOL/L (99-107); GLUCOSE 101 MG/DL (70-104); LIPASE 82 U/L (73-393); SODIUM 139 MMOL/L (135-145); TOTAL CARBON DIOXIDE 26.4 MMOL/L (24-32); TOTAL PROTEIN 7.6 G/DL (6.4-8.2); eGFR 67 ML/MIN
--- NOTE | 2020-12-12 19:22 | NUR ---
No UA per Dr. Sage.
[2020-12-12 19:23] VITALS: BP 124/75
== END 2020-12-12 19:30 | disposition home or self-care (01) ==
LOC: ER 15:57
DX: G89.18 Other acute postprocedural pain (principal); R10.10 Upper abdominal pain, unspecified; Z85.038 Personal history of other malignant neoplasm of large intestine
CPT/HCPCS: 36415; 80053; 83605; 83690; 84145; 85025; 99283

== ENCOUNTER 2022-02-23 08:06 | Day surgery (SDC) | payer MEDICARE, MEDICAID ==
[~2022-02-23] VITALS: Ht 182.9 cm; Wt 97.3 kg
[2022-02-23 08:26] VITALS: BP 132/54
[2022-02-23] MEDS ORDERED: normal saline 1000ml 1,000 ML IV PRN (08:30)
[2022-02-23] MEDS ORDERED: NO HOME MEDS (08:58)
[2022-02-23] MEDS ORDERED: heparin sodium, porcine/PF 100unit/ml 5ML syringe ONE (11:06)
[2022-02-23] MEDS ORDERED: midazolam 1 mg/ML 2ml injection ONE (11:07)
[2022-02-23] MEDS ORDERED: fentaNYL/PF 50MCG/1 ML 2ML syringe ONE (11:07)
[2022-02-23] MEDS ORDERED: ceFAZolin 2gm in dextrose, iso 50 ML IV ONE (11:52)
[2022-02-23 12:20] VITALS: BP 137/79
[2022-02-23] MEDS ORDERED: normal saline 1000ml 1,000 ML IV SCH (12:25)
[2022-02-23 12:35] VITALS: BP 123/77
[2022-02-23 12:50] VITALS: BP 124/82
--- NOTE | 2022-02-23 13:33 | NUR ---
Patient had chemotherapy appointment scheduled after port placement. gave telephone order and okay'd for patient to leave early. Patient was discharged 40 minutes after coming back to room in short stay post procedure rather than 60 minutes as it was originally ordered.
== END 2022-02-23 13:00 | disposition home or self-care (01) ==
LOC: SSTAY O 08:06
PROVIDERS: ATTEND Radiology Vascular & Interventional Radiology
DX: C18.9 Malignant neoplasm of colon, unspecified (principal)
CPT/HCPCS: 36561; 76937; 77001; 99152; 99153; C1788; C1894; J0690; J1642; J2250; J3010; J7030; A4620